=== PATIENT | female | born 1960 ===

== ENCOUNTER → 2018-10-19 | Outpatient (REF) ==
--- NOTE | 2018-10-19 15:03 | REP ---
Partial lumbosacral spine: AP, lateral and L5-S1 (3) views Indication: DDD. Comparison: None Findings: There is dextro curvature of the lumbar spine with a rotational component. There is no evidence of spondylolisthesis or spondylolysis. Vertebral body heights are maintained there is mild anterior marginal endplate spurring and sclerosis. The sacroiliac joints are intact. There is diffuse atherosclerotic calcification of the abdominal aorta and iliac arteries. There is significant amount of bowel gas which obscures the evaluation of the sacrum. Impression: Dextrocurvature of the lumbar spine Lumbar spondylosis without evidence of spondylolisthesis or spondylolysis. No compression deformities. Electronically Signed by Gypsy Samuel MD 10/19/2018 02:55 P
--- NOTE | 2018-10-19 19:18 | REP ---
RIGHT SHOULDER, COMPLETE: 10/19/2018. Clinical history: Pain, disability determination. Findings: Three views are provided. The AC joint shows no widening of the joint space, elevation of the clavicle in relationship to the acromion or any significant spurring. Glenohumeral joint shows no subluxation or dislocation. No abnormal soft-tissue calcification noted. Clavicle, ribs and scapula as and glenohumeral head are without fracture. Impression: 1. Negative right shoulder for significant abnormality. Electronically Signed by Mendez Houston MD 10/19/2018 07:49 P
== END ==
LOC: M SMT 13:27
PROVIDERS: ATTEND Internal Medicine
DX: Z00.00 Encounter for general adult medical examination without abnormal findings (principal)